=== PATIENT | female | born 1985 | race Caucasian/White ===

== ENCOUNTER 2019-09-22 07:43 | Emergency (ER) | payer MEDICAID ==
[~2019-09-22] VITALS: Ht 157.5 cm; Wt 43.0 kg
[~2019-09-22 07:43] MED LIST: ALPR0.5T7 PO; CYCL5TAB PO; ELAVIL PO; OXYC-307 PO; TRAM50TA2 PO
--- NOTE | 2019-09-22 08:01 | NUR ---
PT AMBULATED TO ROOM W/ MULT. COMPLAINTS. PT CONCERNED HAS MORE "STROKE LIKE AND CARDIAC LIKE" SYMPTOMS X 1 WEEK S/P "POPPING NECK" WHILE DOING PT EXERCISES AT HOME. PT VERY RESTLESS ON GURNEY, REPORTS IS UNABLE TO CONTROL MOVEMENTS. NO SIGNS OF RESPIRATORY DISTRESS NOTED. PT PLACED ON MANAGER NICU.
--- NOTE | 2019-09-22 08:24 | NUR ---
URINE COLLECTED AND SENT TO LAB
[2019-09-22] MEDS ORDERED: LORazepam 1MG TABLET ONE (08:38)
--- NOTE | 2019-09-22 08:41 | NUR ---
PT MEDICATED ORDERED. LABS DRAWN. PT AWARE OF HIGH FALL RISK PRECAUTIONS W/ MEDICATION. CALL LIGHT IN REACH.
[2019-09-22 08:46] LABS: MICROSCOPIC NOT IND
--- NOTE | 2019-09-22 08:50 | NUR ---
PT TAKEN TO RADIOLOGY VIA [facility]
[2019-09-22 08:53] LABS: CULTURE INDICATED? NO
[2019-09-22 08:54] LABS: BASOPHILS # (AUTO) 0.05 x10^3/uL (0-0.1); BASOPHILS % (AUTO) 1 % (0-1); EOSINOPHILS % (AUTO) 2 % (1-7); LYMPHOCYTES # (AUTO) 2.84 x10^3/uL (1-3.4); LYMPHOCYTES % (AUTO) 42 % (22-44); MD NO; MEAN CORPUSCULAR HEMOGLOBIN 31.8 pg (27.0-34.8); MEAN CORPUSCULAR HGB CONC 33.7 g/dL (32.4-35.8); MEAN CORPUSCULAR VOLUME 94.1 fL (80-100); MEAN PLATELET VOLUME 9.2 fL (7.4-10.4); MONOCYTES # (AUTO) 0.59 x10^3/uL (0.2-0.8); MONOCYTES % (AUTO) 9 % (2-9); NEUTROPHILS # (AUTO) 3.13 x10^3/uL (1.8-6.8); NEUTROPHILS % (AUTO) 47 % (42-75); PLATELET COUNT 241 x10^3/uL (130-400)
[2019-09-22 09:00] LABS: ANION GAP 7 mmol/L (5-15); CALCIUM 8.8 mg/dL (8.5-10.1); CHLORIDE 110 mmol/L (98-107); CREATININE 0.77 mg/dL (0.55-1.02)
[2019-09-22] MEDS ORDERED: LORazepam 1MG TABLET PO ONE (09:00)
[2019-09-22 09:03] LABS: TROPONIN I < 0.015 ng/mL (0.000-0.045)
[2019-09-22 09:24] VITALS: BP 149/88
--- NOTE | 2019-09-22 09:39 | NUR ---
PT AMBULATED TO BR WITHOUT DIFFICULTY WALKING NOTED. PT REPORTS FEELING BETTER W/ ATIVAN.
--- NOTE | 2019-09-22 09:47 | NUR ---
PT SITTING ON FLOOR UP AGAINST WALL, REPORTS FEELS BETTER ON BACK TO SIT ON FLOOR, DECLINED OFFER TO SIT IN CHAIR AT THIS TIME. CALL LIGHT PLACED WITHIN REACH OF PT.
--- NOTE | 2019-09-22 10:37 | NUR ---
REVIEWED DISCHARGE INSTRUCTIONS AND PRESCRIPTIONS W/ PT, VERBALIZED UNDERSTANDING TO INFORMATION PROVIDED INCLUDING FOLLOW UP CARE, RETURN PRECAUTIONS, HAND HYGIENE, MEDICATIONS AND HOME CARE. PT DENIED QUESTIONS/CONCERNS. PT AMBULATED FROM ED, NO DIFFICULTY AMBULATING NOTED.
== END 2019-09-22 10:40 ==
LOC: ED 10:38
DX: R07.89 Other chest pain (principal); M54.12 Radiculopathy, cervical region; Z90.710 Acquired absence of both cervix and uterus; R94.31 Abnormal electrocardiogram [ECG] [EKG]
CPT/HCPCS: 36415; 71045; 72050; 80048; 81003; 82040; 84484; 85025; 93005; 99285

== ENCOUNTER 2019-09-23 02:49 | Emergency (ER) | payer MEDICAID ==
[~2019-09-23] VITALS: Ht 165.1 cm; Wt 50.0 kg
--- NOTE | 2019-09-23 02:50 | NUR ---
BIB [facility] W CO RUE/CERVICAL NERVE PAIN X SIX DAYS AFTER "POPPING MY NECK". PT REPORTEDLY SEEN IN ED YESTERDAY FOR SAME, RX'D MOTRIN AND A MUSCLE RELAXER W LITTLE RELIEF. "IT FEELS LIKE MY CAROTIDS GET TOO FULL AND I FEEL LIKE I'M GOING TO PASS OUT" "I KEEP MYSELF FROM PASSING OUT IF I SIT DOWN" +CMS. PT A&OX4, SPEECH CLEAR. FACE SYMMTERICAL. +STRENGTH BP/SPO2/ECG MONITORING IN PLACE.
[2019-09-23 03:01] VITALS: BP 174/99
--- NOTE | 2019-09-23 03:33 | NUR ---
RN TO ROOM TO DC PT. PT YELLING "THIS IS A REAL PROBLEM", "NOONE IS TAKING ME SERIOUSLY!", "I'M JUST GOING TO GO HOME AND ". PT A&OX4, NAD NOTED. PT MOVING ALL EXTREMITIES. DC EDUCATION PROVIDED. ERP TO BEDSIDE TO ADDRESS CONCERNS
--- NOTE | 2019-09-23 04:00 | NUR ---
PT DRESSED, AMBULATED STEADILY TO DC WITH RN. PT REFUSED OFFER OF TAXI VOUCHER. PT A&OX4 AND AMBULATING STEADILY. DRESS APPROPRIATELY FOR WEATHER
== END 2019-09-23 04:12 | disposition home or self-care (01) ==
LOC: ED 03:20
DX: S16.1XXA Strain of muscle, fascia and tendon at neck level, initial encounter (principal); R20.2 Paresthesia of skin; F15.129 Other stimulant abuse with intoxication, unspecified; Z72.9 Problem related to lifestyle, unspecified; Z87.891 Personal history of nicotine dependence; X58.XXXA Exposure to other specified factors, initial encounter; Y93.89 Activity, other specified; Y92.89 Other specified places as the place of occurrence of the external cause; Y99.8 Other external cause status
CPT/HCPCS: 99283

== ENCOUNTER 2020-07-08 11:05 | Emergency (ER) | payer MEDICAID ==
[~2020-07-08] VITALS: Ht 160 cm; Wt 47.2 kg
[2020-07-08] MEDS ORDERED: SODIUM CHLORIDE FLUSH 10ML SYR IVF ONE (12:00)
[2020-07-08] MEDS ORDERED: KETOROLAC 30 MG/1 ML IVPush ONE (12:00)
[2020-07-08] MEDS ORDERED: LORazepam 2 MG/ML, 1ML IVPush ONE (12:00)
[2020-07-08 12:13] VITALS: BP 155/105
[2020-07-08] MEDS ORDERED: LORazepam 2 MG/ML, 1ML ONE (12:21)
[2020-07-08] MEDS ORDERED: KETOROLAC 30 MG/1 ML ONE (12:22)
[2020-07-08 12:35] LABS: BASOPHILS % (AUTO) 1 % (0-1); EOSINOPHILS % (AUTO) 1 % (1-7); LYMPHOCYTES % (AUTO) 42 % (22-44); MEAN CORPUSCULAR HEMOGLOBIN 32.3 pg (27.0-34.8); MEAN CORPUSCULAR HGB CONC 34.6 g/dL (32.4-35.8); MEAN PLATELET VOLUME 9.3 fL (7.4-10.4); MONOCYTES % (AUTO) 6 % (2-9); NEUTROPHILS % (AUTO) 51 % (42-75); PLATELET COUNT 254 x10^3/uL (130-400); RED BLOOD COUNT 4.38 x10^6/uL (3.82-5.3); RED CELL DISTRIBUTION WIDTH 14.6 % (9.6-15.2)
[2020-07-08 12:38] LABS: MD NO
[2020-07-08 12:45] LABS: ALANINE AMINOTRANSFERASE 25 U/L (12-78); ALBUMIN 4.2 g/dL (3.4-5.0); ANION GAP 6 mmol/L (5-15); CALCIUM 9.4 mg/dL (8.5-10.1); CHLORIDE 106 mmol/L (98-107); CREATININE 0.75 mg/dL (0.55-1.02)
[2020-07-08 12:47] LABS: ALKALINE PHOSPHATASE 65 U/L (45-117); BILIRUBIN,TOTAL 0.4 mg/dL (0.2-1.0); TOTAL PROTEIN 7.7 g/dL (6.4-8.2)
--- NOTE | 2020-07-08 12:59 | NUR ---
ERON GUTIÉRREZ AT BEDSIDE TO DISCUSS POC
--- NOTE | 2020-07-08 13:39 | NUR ---
DISCHARGE INSTRUCTIONS REVIEWED
== END 2020-07-08 13:41 | disposition home or self-care (01) ==
LOC: ED 13:36
DX: S16.1XXA Strain of muscle, fascia and tendon at neck level, initial encounter (principal); M54.5 Low back pain; R07.89 Other chest pain; R00.0 Tachycardia, unspecified; F17.200 Nicotine dependence, unspecified, uncomplicated; Z90.89 Acquired absence of other organs; Z90.710 Acquired absence of both cervix and uterus; Z90.721 Acquired absence of ovaries, unilateral; X58.XXXA Exposure to other specified factors, initial encounter; Y93.89 Activity, other specified; Y92.89 Other specified places as the place of occurrence of the external cause; Y99.8 Other external cause status
CPT/HCPCS: 36415; 71045; 72050; 80053; 85025; 93005; 96374; 96375; 99285; J1885; J2060